=== PATIENT | female | born 1950 | race Caucasian/White ===

== ENCOUNTER → 2023-07-24 12:46 | Outpatient (REF) | payer MEDICARE, OTHER, SELFPAY | LOC: RAD 12:46 | PROVIDERS: ATTENDING PHYSICIAN Internal Medicine | DX: M79.601 Pain in right arm (principal) | CPT/HCPCS: 73030; 73090; 73110 ==

== ENCOUNTER → 2023-11-27 12:29 | Outpatient (REF) | payer MEDICARE, OTHER, SELFPAY | LOC: WDC 12:29 | PROVIDERS: ATTENDING PHYSICIAN Obstetrics & Gynecology; FAMILY PHYSICIAN Internal Medicine | DX: Z12.31 Encounter for screening mammogram for malignant neoplasm of breast (principal) | CPT/HCPCS: 77063; 77067 ==

== ENCOUNTER → 2023-12-06 16:06 | Outpatient (REF) | payer MEDICARE, OTHER, SELFPAY | LOC: RCS 16:06 | PROVIDERS: ATTENDING PHYSICIAN Family Medicine; REFERRING PHYSICIAN Internal Medicine Cardiovascular Disease | DX: I51.7 Cardiomegaly (principal) | CPT/HCPCS: 93306 ==

== ENCOUNTER → 2024-12-19 08:43 | Outpatient (REF) | payer MEDICARE, OTHER, SELFPAY | LOC: WDC 08:43 | PROVIDERS: ATTENDING PHYSICIAN Obstetrics & Gynecology; FAMILY PHYSICIAN Internal Medicine | DX: Z12.31 Encounter for screening mammogram for malignant neoplasm of breast (principal); M81.0 Age-related osteoporosis without current pathological fracture | CPT/HCPCS: 77063; 77067; 77080 ==